=== PATIENT | female | born 1995 | race Caucasian/White ===

== ENCOUNTER 2020-11-25 00:45 | Inpatient (IN) | payer OTHER ==
[~2020-11-25 00:45] MED LIST: Bupivacaine 0.25% 10 ML SDV ONE; Lidocaine 1.5% with EPINEPHrine 1:200,000 5 ML Amp ONE; Lidocaine 2% with EPINEPHrine 1:200,000 20 ML SDV ONE
[2020-11-25] MEDS ORDERED: Sodium Chloride 0.9% 10 ML Syringe FLUSH PRN (01:12)
[2020-11-25] MEDS ORDERED: Acetaminophen 325 MG Tab PO PRN ×2 (01:12→15:23)
[2020-11-25] MEDS ORDERED: Nalbuphine 10 MG/1 ML Vial IVPUSH PRN (01:12)
[2020-11-25] MEDS ORDERED: Oxytocin/Lactated Ringers 10 UNIT/1,000 ML BAG IV SCH ×3 (01:15→15:23)
--- NOTE | 2020-11-25 01:39 | PCM.LDHP ---
L&D History of Present Illness - General Date of Service: 11/25/20 Admit Problem/Dx: Patient Status Order with Admit Dx/Problem 11/25/20 01:12 Patient Status [ADT] Routine Admission Diagnosis/Problem Admission Diagnosis/Problem Source of Information: Patient History Limitations: Reports: No Limitations - History of Present Illness Introduction:: Noni Obrien is a 25-year-old G1, P0 female at 38 weeks 4 days (CAMELIA 12/05/2020) by LMP consistent with a 21-week ultrasound who presents with contractions. She reports that she has been having contractions on and off for the last 1.5 to 2 days and that since yesterday afternoon they have been increasing in intensity. She states that in the afternoon of 11/24 around 2 PM she started to have contractions that were 5 to 10 minutes apart and then became regular at around 5 minutes apart. Throughout the afternoon and evening she states that the contractions became much more intense in the amount of pain with the contractions. She denies any leaking of fluid but this evening she did have a small amount of bleeding when she went to the restroom. She reports good movement. Timing/Duration: Reports: constant/continuous (Every 5 minutes or so since the afternoon of 11/24) Location, : Reports: Lower back, Pelvic Quality: Reports: Pressure, Throbbing Severity: Moderate Improves with: Reports: None Worsens with: Reports: None Associated Symptoms: Reports: vaginal bleeding (In the evening when she went to the restroom). Denies: vaginal discharge, vaginal fluid Present Illness Comments:: Noni Obrien is a 25-year-old G1, P0 female at 38 weeks 4 days (CAMELIA 12/05/2020) by LMP consistent with a 21-week ultrasound who presents with contractions with cervical dilation to 5 cm. She has had routine care with Dr. Yang starting at 11 weeks gestational age. She denies any complications during this . She received Tdap vaccine on 09/11/2020. She did have genetic screening testing done with the that came back normal and did not show any abnormalities. Testing showed that this was a male . Her care has been with Dr. 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 Male on testing. One hour glucose tolerance test: 123 Second trimester hematocrit/hemoglobin: 32.5%/10.7 on 09/11/2020 Platelets: 357 on 09/11/2020 GBS status: Negative - Related Data Allergies/Adverse Reactions: Allergies Allergy/AdvReac Type Severity Reaction Status Date / Time No Known Allergies Allergy Verified 11/25/20 00:55 Past Medical History - Past Health History Medical/Surgical History: Denies Medical/Surgical History - Past Surgical History GI Surgical History: Reports: Appendectomy (2016) Social & Family History - Tobacco Use Tobacco Use Status *Q: Never Tobacco User Tobacco Use Within Last Twelve Months: No - Tobacco Core Measures Tobacco Use/Smoking Within Last 30 Days: No Smokeless Tobacco Use in Last 30 Days: No - Alcohol Use Alcohol Use History: No - Recreational Drug Use Recreational Drug Use: No Drug Use in Last 12 Months: No - Living Situation & Occupation Living situation: Reports: , with Spouse H&P Review of Systems - Review of Systems: Review Of Systems: See Below General: Denies: Fever, Chills, Malaise, Weakness, Fatigue HEENT: Denies: Headaches, Rhinitis, Post Nasal Drip, Sinus Congestion, Sore Throat, Visual Changes Pulmonary: Denies: Shortness of Breath, Wheezing, Pleuritic Chest Pain, Cough Cardiovascular: Denies: Chest Pain, Palpitations, Dyspnea on Exertion, Orthopnea Gastrointestinal: Reports: Diarrhea (1 episode when she started to have contractions). Denies: Abdominal Pain, Constipation, Nausea, Vomiting Genitourinary: Denies: Dysuria, Frequency, Burning, Pain, Urgency Musculoskeletal: Reports: Back Pain (and hip pain of ) Skin: Denies: Rash, Lesions Psychiatric: Denies: Depression, Anxiety L&D Exam - Exam Exam: See Below - Vital Signs Vital Signs: Last Vital Signs Temp 36.9 C 11/25/20 00:49 Pulse 98 11/25/20 00:49 Resp 16 11/25/20 00:49 BP 158/84 H 11/25/20 00:49 Pulse Ox 99 11/25/20 00:49 Weight: 100.698 kg - OB Specific Contraction Duration (sec): 45-60 Contraction Frequency (min): 3-5 Contraction Intensity: Moderate to Strong Movement: Active Heart Tones: Present Heart Tones per Min: 120 (+15 x 15 accelerations, no decelerations) Heart Rate (FHR) Variability: Moderate (6-25 bpm) Presentation: Vertex Estimated Weight: 7.5-8 pounds by Parish - Joshua Score Joshua Score Cervix Position: Midposition Joshua Score Consistency: Soft Joshua Score Effacement: >80% (90%) Joshua Score Dilation: > 5 cm (5-6 cm) Joshua Score Infant's Station: -2 Joshua Score Total: 10 - Exam General: Alert, Oriented HEENT: Conjunctiva Clear, EOMI Neck: Supple, Trachea Midline Lungs: Clear to Auscultation, Normal Respiratory Effort Cardiovascular: Regular Rate, Regular Rhythm GI/Abdominal Exam: Soft, Non-Tender, No Distention, Other (Gravid). No: Guarding, Rigid, Rebound Genitourinary: Normal external exam Extremities: Normal Inspection, No Pedal Edema Skin: Warm, Dry, Intact Psychiatric: Alert, Normal Affect, Normal Mood - Patient Data Result Diagrams: 11/25/20 01:40 11/25/20 01:40 - Problem List (1) 38 weeks gestation of SNOMED Code(s): 28331615 ICD Code: Z3A.38 - 38 WEEKS GESTATION OF Status: Acute Current Visit: Yes (2) Excessive weight gain during SNOMED Code(s): 059936942 ICD Code: O26.00 - EXCESSIVE WEIGHT GAIN IN , UNSPECIFIED TRIMESTER Status: Acute Current Visit: Yes Problem List Initiated/Reviewed/Updated: Yes Orders Last 24hrs: Active Orders 24 hr Category Date Time Status Patient Status [ADT] Routine ADT 11/25/20 01:12 Ordered Activity as Tolerated [RC] PFP Care 11/25/20 01:12 Ordered Communication Order [RC] ASDIRECTED Care 11/25/20 01:12 Ordered Heart Tones [RC] ASDIRECTED Care 11/25/20 01:12 Ordered Non Stress Test [RC] PER UNIT ROUTINE Care 11/25/20 01:12 Ordered Notify Provider Vital Signs [RC] PRN Care 11/25/20 01:12 Ordered Notify Provider [RC] PFP Care 11/25/20 01:12 Ordered Notify Provider [RC] PRN Care 11/25/20 01:12 Ordered Peripheral IV Care [RC] . DIRECTED Care 11/25/20 01:12 Ordered Pump Management, Intrathecal [RC] ASDIRECTED Care 11/25/20 01:12 Ordered Vital Signs [RC] PER UNIT ROUTINE Care 11/25/20 01:12 Ordered Regular Diet [DIET] Diet 11/25/20 Breakfast Ordered CBC WITH AUTO DIFF [HEME] Routine Lab 11/25/20 01:12 Ordered COMPREHENSIVE METABOLIC PN,CMP [CHEM] Routine Lab 11/25/20 01:12 Ordered CORONAVIRUS COVID-19 MORENA [MOLEC] Routine Lab 11/25/20 01:10 Received HEP C VIRUS AB [REF] Routine Lab 11/25/20 01:28 Ordered LACTATE DEHYDROGENASE,LDH [CHEM] Routine Lab 11/25/20 01:12 Ordered PROTEIN/CREATININE RATIO,URINE [URCHEM] Routine Lab 11/25/20 01:12 Ordered RAPID PLASMA REAGIN,RPR [CHEM] Routine Lab 11/25/20 01:12 Ordered Acetaminophen [TylenoL] Med 11/25/20 01:12 Ordered 650 mg PO Q6H PRN Lactated Ringers [Ringers, Lactated] 1,000 ml Med 11/25/20 01:15 Ordered IV ASDIRECTED Nalbuphine [Nubain] Med 11/25/20 01:12 Ordered 10 mg IVPUSH Q2H PRN Oxytocin/Lactated Ringers [Pitocin in LR 10 Units/1,000 Med 11/25/20 01:15 Ordered ML] 10 unit in 1,000 ml IV .CONTINUOUS Sodium Chloride 0.9% [Saline Flush] Med 11/25/20 01:12 Ordered 10 ml FLUSH ASDIRECTED PRN Electronic Heart Tones Ext w TOCO [WOMSER] Oth 11/25/20 01:12 Ordered Routine Electronic Heart Tones Internal [WOMSER] Per Unit Oth 11/25/20 01:12 Ordered Routine Peripheral IV Insertion Adult [OM.PC] Routine Oth 11/25/20 01:12 Ordered Resuscitation Status Routine Resus Stat 11/25/20 00:49 Ordered Medication Orders Acetaminophen (Acetaminophen 325 Mg Tab) 650 mg PO Q6H PRN PRN Reason: Pain (Mild 1-3) and fever Lactated Ringer's (Ringers, Lactated) 1,000 mls @ 100 mls/hr IV ASDIRECTED SUNITHA Oxytocin/Lactated Ringer's (Pitocin In Lr 10 Units/1,000 Ml) 10 unit in 1,000 mls @ 100 mls/hr IV .CONTINUOUS SUNITHA; Protocol Nalbuphine HCl (Nalbuphine 10 Mg/1 Ml Vial) 10 mg IVPUSH Q2H PRN PRN Reason: Pain Sodium Chloride (Sodium Chloride 0.9% 10 Ml Syringe) 10 ml FLUSH ASDIRECTED PRN PRN Reason: Keep Vein Open Assessment/Plan Comment:: Noni Obrien is a 25-year-old G1, P0 at 38 weeks 4 days (CAMELIA 12/05/2020) with spontaneous labor with cervical dilation of 5 to 6 cm complicated by excessive weight gain during * Refer to observation for spontaneous labor with cervical dilation to 5 cm * Plan for artificial rupture of membranes after she has received epidural * Start Pitocin for augmentation of labor * Continuous monitoring * Place IV and have Lactated Ringer's at 125 ml/hr * May have small amounts of regular diet * Activity as tolerated * May have epidural as desired * Plans to breast-feed after delivery * Check CBC, CMP, lactate dehydrogenase, urine protein/creatinine ratio due to mild range blood pressures on initial presentation. Patient did have 1 severe range blood pressure shortly after admission that was not sustained. We will continue to monitor very closely for her blood pressures during labor to ensure that there is no evidence of preeclampsia * Hepatitis C to be checked with labs due to not having this checked during the * Anticipate vaginal delivery unless otherwise indicated Duran Hamilton MD 1:45 AM 11/25/2020
[2020-11-25] MEDS ORDERED: diphenhydrAMINE 50 MG/ML SDV IVPUSH PRN (02:39)
[2020-11-25] MEDS ORDERED: ePHEDrine 50 MG/ML SDV IVPUSH PRN (02:39)
[2020-11-25] MEDS: Lactated Ringers 1,000 ML IV SCH ×3 (02:40→10:27)
[2020-11-25] MEDS: Bupivacaine/fentaNYL/NS 100 ML Bag EPIDUR PRN ×2 (02:48→10:28)
[2020-11-25] MEDS: fentaNYL 100 MCG/2 ML SDV EPIDUR PRN ×2 (02:48→09:19)
--- NOTE | 2020-11-25 03:34 | PCM.PNLD ---
Labor Progress Note - VS & Meds Vital Signs: Last Vital Signs Temp 36.9 C 11/25/20 00:49 Pulse 98 11/25/20 00:49 Resp 16 11/25/20 00:49 BP 158/84 H 11/25/20 00:49 Pulse Ox 99 11/25/20 00:49 Active Medications: Current Medications Acetaminophen (Acetaminophen 325 Mg Tab) 650 mg PO Q6H PRN PRN Reason: Pain (Mild 1-3) and fever Diphenhydramine HCl (Diphenhydramine 50 Mg/Ml Sdv) 25 mg IVPUSH Q6H PRN PRN Reason: pruritis Ephedrine Sulfate (Ephedrine 50 Mg/Ml Sdv) 5 mg IVPUSH ASDIRECTED PRN PRN Reason: Hypotension Fentanyl (Fentanyl 100 Mcg/2 Ml Sdv) 100 mcg EPIDUR Q3H PRN PRN Reason: Pain Last Admin: 11/25/20 02:48 Dose: 100 mcg Documented by: Fentanyl/Bupivacaine HCl (Bupivacaine/Fentanyl/Ns 100 Ml Bag) 100 ml EPIDUR ASDIRECTED PRN PRN Reason: Pain Last Admin: 11/25/20 02:48 Dose: 100 ml Documented by: Lactated Ringer's (Ringers, Lactated) 1,000 mls @ 100 mls/hr IV ASDIRECTED SUNITHA Last Admin: 11/25/20 03:23 Dose: 999 mls/hr Documented by: Oxytocin/Lactated Ringer's (Pitocin In Lr 10 Units/1,000 Ml) 10 unit in 1,000 mls @ 100 mls/hr IV .CONTINUOUS SUNITHA; Protocol Nalbuphine HCl (Nalbuphine 10 Mg/1 Ml Vial) 10 mg IVPUSH Q2H PRN PRN Reason: Pain Sodium Chloride (Sodium Chloride 0.9% 10 Ml Syringe) 10 ml FLUSH ASDIRECTED PRN PRN Reason: Keep Vein Open - Uterine Contractions Contraction Frequency (min): 3-4 Contraction Duration (sec): 45-60 Contraction Intensity: Strong - Monitoring Monitor Mode: Doppler/Auscultation Heart Rate (FHR) Baseline: 120 Heart Rate (FHR) Per Doppler: 120 Heart Rate (FHR) Variability: Moderate (6-25 bpm) Accelerations: Present, 15x15 Decelerations: None Strip Review: Category I - Vaginal Exam Dilation (cm): 7 cm Effacement (Percent): 100% Station: 0 Cervical Position: Anterior Sterile Vaginal Exam Performed By: Duran Hamilton Vaginal Exam Comment: Artificial rupture membranes without significant return of fluid. Several small marble sized clots noted after artificial rupture of membranes. Mother and infant tolerated procedure without difficulty. No significant changes in heart rate pattern after artificial rupture membranes with bleeding noted - Labor Progress (Free Text) Labor Progress: Noni Obrien is a 25-year-old G1, P0 at 38 weeks 4 days with spontaneous labor complicated by mild anemia in the second trimester of excessive weight gain in Artificial rupture membranes performed with [place] without significant return of fluid. There was several small marble sized clots that were noted on exam after rupture of membranes. Mother and infant tolerated procedure without difficulty. Continuous monitoring at this time Patient with mild range blood pressures and an elevated urine protein/creatinine ratio of 0.315. Suspect that patient does have preeclampsia without severe features. We will monitor closely for her blood pressures at this time Routine vitals Patient with epidural for anesthesia Patient may have small amount of regular diet as tolerated Anticipate vaginal delivery unless otherwise indicated Duran Hamilton MD 3:35 AM 11/25/2020
--- NOTE | 2020-11-25 09:51 | PCM.PREANE ---
Preanesthetic Assessment - Procedure Proposed Procedure: Continuous labor epidural - Anesthesia/Transfusion/Family Hx Anesthesia History: Prior Anesthesia Without Reaction Transfusion History: No Prior Transfusion(s) - Review of Systems General: No Symptoms Pulmonary: No Symptoms Cardiovascular: No Symptoms, Other (HTN) Gastrointestinal: No Symptoms Neurological: No Symptoms Other: Reports: None - Physical Assessment Vital Signs: Last Vital Signs Temp 98.5 F 11/25/20 00:49 Pulse 98 11/25/20 00:49 Resp 16 11/25/20 00:49 BP 158/84 H 11/25/20 00:49 Pulse Ox 99 11/25/20 00:49 Height: 1.65 m Weight: 100.698 kg ASA Class: 2 Mental Status: Alert & Oriented x3 Airway Class: Mallampati = 3 Dentition: Reports: Normal Dentition Thyro-Mental Finger Breadths: 3 Mouth Opening Finger Breadths: 3 ROM/Head Extension: Full Lungs: Clear to Auscultation, Normal Respiratory Effort Cardiovascular: Regular Rate, Regular Rhythm - Lab Values: Laboratory Last Values WBC 12.24 K/mm3 (3.98-10.04) H 11/25/20 01:40 RBC 4.21 M/mm3 (3.98-5.22) 11/25/20 01:40 Hgb 12.8 gm/dl (11.2-15.7) 11/25/20 01:40 Hct 39.7 % (34.1-44.9) 11/25/20 01:40 MCV 94.3 fl (79.4-94.8) 11/25/20 01:40 MCH 30.4 pg (25.6-32.2) 11/25/20 01:40 MCHC 32.2 g/dl (32.2-35.5) 11/25/20 01:40 RDW Std Deviation 55.4 fL (36.4-46.3) H 11/25/20 01:40 Plt Count 345 K/mm3 (182-369) 11/25/20 01:40 MPV 10.9 fl (9.4-12.3) 11/25/20 01:40 Neut % (Auto) 76.3 % (34.0-71.1) H 11/25/20 01:40 Lymph % (Auto) 11.9 % (19.3-51.7) L 11/25/20 01:40 [place] % (Auto) 9.7 % (4.7-12.5) 11/25/20 01:40 Eos % (Auto) 1.4 (0.7-5.8) 11/25/20 01:40 Baso % (Auto) 0.2 % (0.1-1.2) 11/25/20 01:40 Neut # (Auto) 9.34 K/mm3 (1.56-6.13) H 11/25/20 01:40 Lymph # (Auto) 1.46 K/mm3 (1.18-3.74) 11/25/20 01:40 [place] # (Auto) 1.19 K/mm3 (0.24-0.36) H 11/25/20 01:40 Eos # (Auto) 0.17 K/mm3 (0.04-0.36) 11/25/20 01:40 Baso # (Auto) 0.02 K/mm3 (0.01-0.08) 11/25/20 01:40 Sodium 139 mEq/L (136-145) 11/25/20 01:40 Potassium 4.0 mEq/L (3.5-5.1) 11/25/20 01:40 Chloride 104 mEq/L (98-107) 11/25/20 01:40 Carbon Dioxide 23 mEq/L (21-32) 11/25/20 01:40 Anion Gap 16.0 (5-15) H 11/25/20 01:40 BUN 11 mg/dL (7-18) 11/25/20 01:40 Creatinine 0.6 mg/dL (0.55-1.02) 11/25/20 01:40 Est Cr Clr Drug Dosing 131.22 mL/min 11/25/20 01:40 Estimated GFR (MDRD) > 60 mL/min (>60) 11/25/20 01:40 BUN/Creatinine Ratio 18.3 (14-18) H 11/25/20 01:40 Glucose 91 mg/dL (70-99) 11/25/20 01:40 Calcium 8.4 mg/dL (8.5-10.1) L 11/25/20 01:40 Total Bilirubin 0.2 mg/dL (0.2-1.0) 11/25/20 01:40 AST 25 U/L (15-37) 11/25/20 01:40 ALT 34 U/L (14-59) 11/25/20 01:40 Alkaline Phosphatase 179 U/L (46-116) H 11/25/20 01:40 Lactate Dehydrogenase 204 U/L (81-234) 11/25/20 01:40 Total Protein 6.9 g/dl (6.4-8.2) 11/25/20 01:40 Albumin 2.7 g/dl (3.4-5.0) L 11/25/20 01:40 Globulin 4.2 gm/dL 11/25/20 01:40 Albumin/Globulin Ratio 0.6 (1-2) L 11/25/20 01:40 Ur Random Creatinine 69.1 mg/dL (30.0-125.0) 11/25/20 02:00 U Random Total Protein 21.8 mg/dL (0.0-11.8) H 11/25/20 02:00 Protein/Creatinin Ratio 315.5 mg/g (0-149) H 11/25/20 02:00 SARS-CoV-2 RNA (MORENA) Negative (NEGATIVE) 11/25/20 01:10 - Allergies Allergies/Adverse Reactions: Allergies Allergy/AdvReac Type Severity Reaction Status Date / Time No Known Allergies Allergy Verified 11/25/20 00:55 - Acknowledgements Anesthesia Type Planned: Epidural Pt an Appropriate Candidate for the Planned Anesthesia: Yes Alternatives and Risks of Anesthesia Discussed w Pt/Guardian: Yes Pt/Guardian Understands and Agrees with Anesthesia Plan: Yes PreAnesthesia Questionnaire - Past Health History Medical/Surgical History: Denies 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: - Past Surgical History GI Surgical History: Reports: Appendectomy (2016) - SUBSTANCE USE Tobacco Use Status *Q: Never Tobacco User Tobacco Use Within Last Twelve Months: No Recreational Drug Use History: No - CURRENT (IN HOUSE) MEDS Current Meds: Current Medications Acetaminophen (Acetaminophen 325 Mg Tab) 650 mg PO Q6H PRN PRN Reason: Pain (Mild 1-3) and fever Diphenhydramine HCl (Diphenhydramine 50 Mg/Ml Sdv) 25 mg IVPUSH Q6H PRN PRN Reason: pruritis Ephedrine Sulfate (Ephedrine 50 Mg/Ml Sdv) 5 mg IVPUSH ASDIRECTED PRN PRN Reason: Hypotension Fentanyl (Fentanyl 100 Mcg/2 Ml Sdv) 100 mcg EPIDUR Q3H PRN PRN Reason: Pain Last Admin: 11/25/20 09:19 Dose: 100 mcg Documented by: Fentanyl/Bupivacaine HCl (Bupivacaine/Fentanyl/Ns 100 Ml Bag) 100 ml EPIDUR ASDIRECTED PRN PRN Reason: Pain Last Admin: 11/25/20 02:48 Dose: 100 ml Documented by: Lactated Ringer's (Ringers, Lactated) 1,000 mls @ 100 mls/hr IV ASDIRECTED SUNITHA Last Admin: 11/25/20 03:23 Dose: 999 mls/hr Documented by: Oxytocin/Lactated Ringer's (Pitocin In Lr 10 Units/1,000 Ml) 10 unit in 1,000 mls @ 100 mls/hr IV .CONTINUOUS SUNITHA; Protocol Oxytocin/Lactated Ringer's (Pitocin In Lr 10 Units/1,000 Ml) 10 unit in 1,000 mls @ 12 mls/hr IV TITRATE SUNITHA; Protocol Last Titration: 11/25/20 09:30 Dose: 4 munits/min, 24 mls/hr Documented by: Nalbuphine HCl (Nalbuphine 10 Mg/1 Ml Vial) 10 mg IVPUSH Q2H PRN PRN Reason: Pain Sodium Chloride (Sodium Chloride 0.9% 10 Ml Syringe) 10 ml FLUSH ASDIRECTED PRN PRN Reason: Keep Vein Open
[2020-11-25] MEDS ORDERED: Misoprostol 200 MCG Tab ONE (15:00)
--- NOTE | 2020-11-25 15:03 | PCM.DEL ---
L & D Note - General Info Date of Service: 11/25/20 Mother's Due Date: 12/05/20 - Delivery Note Labor: Spontaneous, Augmented by Oxytocin Delivery Outcome: Livebirth Infant Delivery Method: Spontaneous Vaginal Delivery-Single Presentation: Right Occiput Anterior (PUSHPA) Nuchal Cord: None Prep: Povidone-Iodine (Betadine Anesthesia Type: Epidural Amniotic Fluid Description: Bloody Episiotomy Type: None Laceration: 2nd Degree (right vaginal, repaired with 3-0 Vicryl), Labial (right labial repaired with 4-0 Vicryl) Suture type: Vicryl Suture size: 3-0 Placenta: Intact, Spontaneous Cord: 3 Vessels Estimated Blood Loss: 750 Resuscitation Needed: No [place]: Bulb Syringe, Stimulated, Warmed, [place] Used Provider: Anshu Holloway Score 1 min: 8 Score 5 min: 9 Second Stage Interventions: Reports: Pushing Effectively, Pushing, Stirrups/Leg Supports Delivery Comments (Free Text/Narrative):: Stage I: Noni Obrien was admitted for spontaneous labor. On admission her cervix was dilated to 5 to 6 cm. She was GBS negative. She was given an epidural for anesthesia. Patient had mild range blood pressures when she was first admitted with 1 severe range blood pressure that was not sustained. We received labs that showed an elevated urine protein/creatinine ratio 0.315. Patient was diagnosed with preeclampsia without severe features based on these ongoing mild range blood pressures with proteinuria she had artificial rupture of membranes with return of small amount of bloody fluid. 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 At this time her contractions decreased significantly and her cervix was overall unchanging. She was started on Pitocin for augmentation of labor. She progressed to complete and pushing Stage II: On 11/25/2020 she had a normal vaginal delivery of a live male infant at 14:13. Apgars of 8 & 9. Weight of 4008 g (8 lbs 15.9 oz). Length of 22 inches. There was no nuchal cord. was delivered in PUSHPA position. The cord was doubly clamped and cut by father the . Infant was placed on mother's abdomen. Stage III: She had a spontaneous delivery of an intact placenta in [place] presentation. Three vessel cord. She was given pitocin and fundal massage. She had a laceration along the right medial labia minora connecting to a right vaginal sidewall laceration. The right vaginal sidewall laceration was repaired with 3-0 Vicryl in a running locked fashion. The right labia minora laceration was repaired with 4-0 Vicryl in running fashion with occasional locked suture in areas with small amount of bleeding. Patient had some increased amount of bleeding during the repair from the vagina. The uterus was cleared of any clots and she was given Cytotec 1000 mcg rectally to help with uterine tone mom and baby were stable to recovery. EBL of 750 mL. Duran Hamilton MD 3:10 PM 11/25/2020 - General Info Date of Service: 11/25/20 - Patient Data Vitals - Most Recent: Last Vital Signs Temp 36.9 C 11/25/20 00:49 Pulse 98 11/25/20 00:49 Resp 16 11/25/20 00:49 BP 158/84 H 11/25/20 00:49 Pulse Ox 99 11/25/20 00:49 Weight - Most Recent: 100.698 kg I&O - Last 24 Hours: Intake & Output 11/25/20 11/25/20 11/25/20 06:59 14:59 22:59 Intake Total 1000 Output Total 1550 Balance 1000 -1550 Lab Results Last 24 Hours: Laboratory Results - last 24 hr 11/25/20 11/25/20 11/25/20 Range/Units 01:10 01:40 01:40 WBC 12.24 H (3.98-10.04) K/mm3 RBC 4.21 (3.98-5.22) M/mm3 Hgb 12.8 (11.2-15.7) gm/dl Hct 39.7 (34.1-44.9) % MCV 94.3 (79.4-94.8) fl MCH 30.4 (25.6-32.2) pg MCHC 32.2 (32.2-35.5) g/dl RDW Std Deviation 55.4 H (36.4-46.3) fL Plt Count 345 (182-369) K/mm3 MPV 10.9 (9.4-12.3) fl Neut % (Auto) 76.3 H (34.0-71.1) % Lymph % (Auto) 11.9 L (19.3-51.7) % [place] % (Auto) 9.7 (4.7-12.5) % Eos % (Auto) 1.4 (0.7-5.8) Baso % (Auto) 0.2 (0.1-1.2) % Neut # (Auto) 9.34 H (1.56-6.13) K/mm3 Lymph # (Auto) 1.46 (1.18-3.74) K/mm3 [place] # (Auto) 1.19 H (0.24-0.36) K/mm3 Eos # (Auto) 0.17 (0.04-0.36) K/mm3 Baso # (Auto) 0.02 (0.01-0.08) K/mm3 Sodium 139 (136-145) mEq/L Potassium 4.0 (3.5-5.1) mEq/L Chloride 104 (98-107) mEq/L Carbon Dioxide 23 (21-32) mEq/L Anion Gap 16.0 H (5-15) BUN 11 (7-18) mg/dL Creatinine 0.6 (0.55-1.02) mg/dL Est Cr Clr Drug Dosing 131.22 mL/min Estimated GFR (MDRD) > 60 (>60) mL/min BUN/Creatinine Ratio 18.3 H (14-18) Glucose 91 (70-99) mg/dL Calcium 8.4 L (8.5-10.1) mg/dL Total Bilirubin 0.2 (0.2-1.0) mg/dL AST 25 (15-37) U/L ALT 34 (14-59) U/L Alkaline Phosphatase 179 H (46-116) U/L Lactate Dehydrogenase 204 (81-234) U/L Total Protein 6.9 (6.4-8.2) g/dl Albumin 2.7 L (3.4-5.0) g/dl Globulin 4.2 gm/dL Albumin/Globulin Ratio 0.6 L (1-2) Ur Random Creatinine (30.0-125.0) mg/dL U Random Total Protein (0.0-11.8) mg/dL Protein/Creatinin Ratio (0-149) mg/g SARS-CoV-2 RNA (MORENA) Negative (NEGATIVE) 11/25/20 Range/Units 02:00 WBC (3.98-10.04) K/mm3 RBC (3.98-5.22) M/mm3 Hgb (11.2-15.7) gm/dl Hct (34.1-44.9) % MCV (79.4-94.8) fl MCH (25.6-32.2) pg MCHC (32.2-35.5) g/dl RDW Std Deviation (36.4-46.3) fL Plt Count (182-369) K/mm3 MPV (9.4-12.3) fl Neut % (Auto) (34.0-71.1) % Lymph % (Auto) (19.3-51.7) % [place] % (Auto) (4.7-12.5) % Eos % (Auto) (0.7-5.8) Baso % (Auto) (0.1-1.2) % Neut # (Auto) (1.56-6.13) K/mm3 Lymph # (Auto) (1.18-3.74) K/mm3 [place] # (Auto) (0.24-0.36) K/mm3 Eos # (Auto) (0.04-0.36) K/mm3 Baso # (Auto) (0.01-0.08) K/mm3 Sodium (136-145) mEq/L Potassium (3.5-5.1) mEq/L Chloride (98-107) mEq/L Carbon Dioxide (21-32) mEq/L Anion Gap (5-15) BUN (7-18) mg/dL Creatinine (0.55-1.02) mg/dL Est Cr Clr Drug Dosing mL/min Estimated GFR (MDRD) (>60) mL/min BUN/Creatinine Ratio (14-18) Glucose (70-99) mg/dL Calcium (8.5-10.1) mg/dL Total Bilirubin (0.2-1.0) mg/dL AST (15-37) U/L ALT (14-59) U/L Alkaline Phosphatase (46-116) U/L Lactate Dehydrogenase (81-234) U/L Total Protein (6.4-8.2) g/dl Albumin (3.4-5.0) g/dl Globulin gm/dL Albumin/Globulin Ratio (1-2) Ur Random Creatinine 69.1 (30.0-125.0) mg/dL U Random Total Protein 21.8 H (0.0-11.8) mg/dL Protein/Creatinin Ratio 315.5 H (0-149) mg/g SARS-CoV-2 RNA (MORENA) (NEGATIVE) Med Orders - Current: Current Medications Acetaminophen (Acetaminophen 325 Mg Tab) 650 mg PO Q6H PRN PRN Reason: Pain (Mild 1-3) and fever Diphenhydramine HCl (Diphenhydramine 50 Mg/Ml Sdv) 25 mg IVPUSH Q6H PRN PRN Reason: pruritis Ephedrine Sulfate (Ephedrine 50 Mg/Ml Sdv) 5 mg IVPUSH ASDIRECTED PRN PRN Reason: Hypotension Fentanyl (Fentanyl 100 Mcg/2 Ml Sdv) 100 mcg EPIDUR Q3H PRN PRN Reason: Pain Last Admin: 11/25/20 09:19 Dose: 100 mcg Documented by: Fentanyl/Bupivacaine HCl (Bupivacaine/Fentanyl/Ns 100 Ml Bag) 100 ml EPIDUR ASDIRECTED PRN PRN Reason: Pain Last Admin: 11/25/20 10:28 Dose: 100 ml Documented by: Lactated Ringer's (Ringers, Lactated) 1,000 mls @ 100 mls/hr IV ASDIRECTED SUNITHA Last Admin: 11/25/20 10:27 Dose: 100 mls/hr Documented by: Oxytocin/Lactated Ringer's (Pitocin In Lr 10 Units/1,000 Ml) 10 unit in 1,000 mls @ 100 mls/hr IV .CONTINUOUS SUNITHA; Protocol Oxytocin/Lactated Ringer's (Pitocin In Lr 10 Units/1,000 Ml) 10 unit in 1,000 mls @ 12 mls/hr IV TITRATE SUNITHA; Protocol Last Titration: 11/25/20 10:27 Dose: 6 munits/min, 36 mls/hr Documented by: Nalbuphine HCl (Nalbuphine 10 Mg/1 Ml Vial) 10 mg IVPUSH Q2H PRN PRN Reason: Pain Sodium Chloride (Sodium Chloride 0.9% 10 Ml Syringe) 10 ml FLUSH ASDIRECTED PRN PRN Reason: Keep Vein Open - Exam Urinary Catheter Total Time: 0Days 0Hours - Problem List & Annotations (1) 38 weeks gestation of SNOMED Code(s): 67752708 Code(s): Z3A.38 - 38 WEEKS GESTATION OF Status: Acute Current Visit: Yes (2) Excessive weight gain during SNOMED Code(s): 924670001 Code(s): O26.00 - EXCESSIVE WEIGHT GAIN IN , UNSPECIFIED TRIMESTER Status: Acute Current Visit: Yes (3) Pre-eclampsia during in third trimester, antepartum SNOMED Code(s): 855010738, 506020879 Code(s): O14.93 - UNSPECIFIED PRE-ECLAMPSIA, THIRD TRIMESTER Status: Acute Current Visit: Yes (4) Vaginal delivery SNOMED Code(s): 972144193 Code(s): O80 - ENCOUNTER FOR FULL-TERM UNCOMPLICATED DELIVERY Status: Acute Current Visit: Yes (5) Second-degree perineal laceration during delivery SNOMED Code(s): 9211324 Code(s): O70.1 - SECOND DEGREE PERINEAL LACERATION DURING DELIVERY Status: Acute Current Visit: Yes (6) Obstetric labial laceration, delivered, current hospitalization SNOMED Code(s): 289153578, 690980416, 820006984 Code(s): O70.0 - FIRST DEGREE PERINEAL LACERATION DURING DELIVERY Status: Acute Current Visit: Yes - Problem List Review Problem List Initiated/Reviewed/Updated: Yes - My Orders Last 24 Hours: My Active Orders 11/25/20 00:49 Resuscitation Status Routine 11/25/20 01:12 Acetaminophen [TylenoL] 650 mg PO Q6H PRN Nalbuphine [Nubain] 10 mg IVPUSH Q2H PRN Sodium Chloride 0.9% [Saline Flush] 10 ml FLUSH ASDIRECTED PRN 11/25/20 01:12 Patient Status [ADT] Routine Activity as Tolerated [RC] PFP Communication Order [RC] ASDIRECTED Heart Tones [RC] ASDIRECTED Non Stress Test [RC] PER UNIT ROUTINE Notify Provider Vital Signs [RC] PRN Notify Provider [RC] PFP Notify Provider [RC] PRN Peripheral IV Care [RC] . DIRECTED Pump Management, Intrathecal [RC] ASDIRECTED Vital Signs [RC] PER UNIT ROUTINE Electronic Heart Tones Ext w TOCO [WOMSER] Routine Electronic Heart Tones Internal [WOMSER] Per Unit Routine Peripheral IV Insertion Adult [OM.PC] Routine 11/25/20 01:15 Lactated Ringers [Ringers, Lactated] 1,000 ml IV ASDIRECTED Oxytocin/Lactated Ringers [Pitocin in LR 10 Units/1,000 ML] 10 unit in 1,000 ml IV .CONTINUOUS 11/25/20 01:40 HEP C VIRUS AB [REF] Routine RAPID PLASMA REAGIN,RPR [CHEM] Routine 11/25/20 03:41 Urinary Catheter Assessment [RC] ASDIRECTED 11/25/20 03:45 Urinary Catheter Insertion [Insert Urinary Catheter] [OM.PC] Q24H 11/25/20 Breakfast Regular Diet [DIET] 11/25/20 08:30 Oxytocin/Lactated Ringers [Pitocin in LR 10 Units/1,000 ML] 10 unit in 1,000 ml IV TITRATE 11/25/20 14:57 Patient Status Manage Transfer [TRANSFER] Routine - Plan Plan:: Noni Obrien is a 25-year-old now -0-0-1 status post , PPD #0, complicated by preeclampsia without severe features diagnosed in labor and excessive weight gain during * Admit to inpatient following normal spontaneous vaginal delivery * Continue Pitocin per unit protocol following delivery of placenta and lactated Ringer's until tolerating regular diet * Regular diet * Vitals per unit routine * Close monitoring of patient's vital signs due to diagnosis of preeclampsia without severe features during labor * Ibuprofen and Tylenol for pain control * Assist with breast-feeding as needed * Continue to monitor lochia * Patient with 750 mL of blood loss during delivery. We will plan to check a CBC in the morning of PPD #1 * Anticipate discharge home on day #2 Duran Hamilton MD 3:10 PM 11/25/2020
[2020-11-25] MEDS ORDERED: Misoprostol 200 MCG Tab RECTAL ONE (15:18)
[2020-11-25] MEDS ORDERED: Misoprostol 200 MCG Tab RECTAL PRN (15:23)
[2020-11-25] MEDS ORDERED: Docusate Sodium 100 MG Cap PO PRN (15:23)
[2020-11-25] MEDS ORDERED: Witch Hazel Medicated Pads 40/Jar TOP PRN (15:23)
[2020-11-25] MEDS ORDERED: Hydrocortisone Acetate 25 MG Supp RECTAL PRN (15:23)
[2020-11-25] MEDS ORDERED: Benzocaine/Menthol 20%-0.5% Spray 56 GM Canister TOP PRN (15:23)
[2020-11-25] MEDS ORDERED: Magnesium Hydroxide 400 MG/5 ML Susp 30 ML Cup PO PRN (15:23)
[2020-11-26] MEDS: Ibuprofen 600 MG Tab PO PRN ×2 (00:30→20:29)
[2020-11-26] MEDS: Prenatal Multivitamin with Calcium/Folic Acid/Iron Tab PO SCH (08:43)
--- NOTE | 2020-11-26 11:19 | PCM.SN.2 ---
- Free Text/Narrative Note: Post Progress Note PPD #1 Subjective: Doing well overall. Ambulating without difficulty. Lochia minimal. Voiding without difficulty. Tolerating regular diet without nausea or vomiting. Pain controlled with oral medications. Reports soreness in the vagina and perineal area. She has been able to urinate without difficulty but does have burning with urination. Reports that the spray bottle after urination helps with this pain. Breast-feeding with minimal difficulty. Denies any headaches, vision ute nges or epigastric pain. Objective: Vitals: Vital Signs - 24 hr 11/25/20 11/26/20 11/26/20 20:55 03:21 08:43 Temperature 37.3 C 36.3 C 36.6 C Pulse, 115 H 84 101 H Peripheral Respiratory 14 14 16 Rate Blood Pressure 135/70 116/75 136/80 O2 Sat by Pulse 96 96 99 Oximetry Physical Exam General: Alert and oriented, no acute distress Lungs: Clear to auscultation bilaterally Heart: Regular rate and rhythm Abdomen: Soft, minimal appropriate tenderness, non-distended, fundus midline, nontender, and 1 fingerbreadth below the umbilicus Extremities: 1+ edema in bilateral lower extremities to knees, no calf tenderness bilaterally Laboratory Results - last 24 hr 11/25/20 11/25/20 11/26/20 Range/Units 01:40 01:40 05:41 WBC 17.79 H (3.98-10.04) K/mm3 RBC 3.34 L (3.98-5.22) M/mm3 Hgb 10.1 L D (11.2-15.7) gm/dl Hct 32.1 L (34.1-44.9) % MCV 96.1 H (79.4-94.8) fl MCH 30.2 (25.6-32.2) pg MCHC 31.5 L (32.2-35.5) g/dl RDW Std Deviation 57.4 H (36.4-46.3) fL Plt Count 285 (182-369) K/mm3 MPV 10.7 (9.4-12.3) fl Neut % (Auto) 78.8 H (34.0-71.1) % Lymph % (Auto) 10.7 L (19.3-51.7) % [place] % (Auto) 9.0 (4.7-12.5) % Eos % (Auto) 1.0 (0.7-5.8) Baso % (Auto) 0.1 (0.1-1.2) % Neut # (Auto) 14.03 H (1.56-6.13) K/mm3 Lymph # (Auto) 1.90 (1.18-3.74) K/mm3 [place] # (Auto) 1.60 H (0.24-0.36) K/mm3 Eos # (Auto) 0.17 (0.04-0.36) K/mm3 Baso # (Auto) 0.02 (0.01-0.08) K/mm3 Manual Slide Review Abnormal smear RPR Non-reactive (NONREACTIVE) Hepatitis C Antibody <0.1 (0.0-0.9) s/co ratio ASSESSMENT: 25-year-old female -0-0-1 s/p normal vaginal delivery PPD #1, complicated by preeclampsia without severe features diagnosed in labor, PLAN: Doing well Breast-feeding with minimal difficulty. Assist as needed Lochia minimal. Continue to monitor for appropriate lochia. Continue routine care Hemoglobin this morning was 10.1 with a drop from 12.8 on admission. No evidence of acute blood loss anemia based on this result. Plan to continue to monitor vital signs closely Normal range blood pressures since delivery. No evidence of severe features of preeclampsia at this time. Continue to monitor her blood pressures closely to ensure that she does not need antihypertensive medication. Anticipate discharge home tomorrow Duran Hamilton MD 11:19 AM 11/26/2020
--- NOTE | 2020-11-27 07:33 | PCM.DCSUM1 ---
Discharge Summary - Hospital Course Free Text/Narrative:: Noni is a 25-year-old 1 now para 1-0-0-1 female admitted on 11/25/2020 with an CAMELIA of 12/05/2020 in early labor. Stage I: Noni Obrien was admitted for spontaneous labor. On admission her cervix was dilated to 5 to 6 cm. She was GBS negative. She was given an epidural for anesthesia. Patient had mild range blood pressures when she was first admitted with 1 severe range blood pressure that was not sustained. We received labs that showed an elevated urine protein/creatinine ratio 0.315. Patient was diagnosed with preeclampsia without severe features based on these ongoing mild range blood pressures with proteinuria she had artificial rupture of membranes with return of small amount of bloody fluid. 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 At this time her contractions decreased significantly and her cervix was overall unchanging. She was started on Pitocin for augmentation of labor. She progressed to complete and pushing Stage II: On 11/25/2020 she had a normal vaginal delivery of a live male infant at 14:13. Apgars of 8 & 9. Weight of 4008 g (8 lbs 15.9 oz). Length of 22 inches. There was no nuchal cord. Infant was delivered in PUSHPA position. The cord was doubly clamped and cut by father the . Infant was placed on mother's abdomen. Stage III: She had a spontaneous delivery of an intact placenta in [place] presentation. Three vessel cord. She was given pitocin and fundal massage. She had a laceration along the right medial labia minora connecting to a right vaginal sidewall laceration. The right vaginal sidewall laceration was repaired with 3-0 Vicryl in a running locked fashion. The right labia minora laceration was repaired with 4-0 Vicryl in running fashion with occasional locked suture in areas with small amount of bleeding. Patient had some increased amount of bleeding during the repair from the vagina. The uterus was cleared of any clots and she was given Cytotec 1000 mcg rectally to help with uterine tone mom and baby were stable to recovery. EBL of 750 mL. patient has had an unremarkable recovery. She is doing very well. She is ambulating without problems, has minimal flow. She is voiding without concerns. She is desiring discharge home. Condition: Good Diagnosis: Stroke: No - Discharge Data Discharge Date: 11/27/20 Discharge Disposition: Home, Self-Care 01 Condition: Good - Referral to Home Health Primary Care Physician: Mile Yang MD - Patient Instructions Diet: Usual Diet as Tolerated (Nursing diet with increased calories and calcium as recommended) Activity: As Tolerated (No intercourse or tampons until bleeding resolves) Driving: May Drive Today Showering/Bathing: May Shower (May take a bath) Notify Provider of: Fever, Increased Pain, Swelling and Redness, Drainage - Discharge Plan Home Medications: Home Meds Acetaminophen [Tylenol] 650 mg PO Q6H PRN tablet 11/27/20 [Rx] Ibuprofen [Motrin] 600 mg PO Q6H PRN tablet 11/27/20 [Rx] miSOPROStoL [Cytotec] 1,000 mcg RECTAL ONETIME PRN tablet 11/27/20 [Rx] Referrals: Mile Yang MD [Primary Care Provider] - - Discharge Summary/Plan Comment DC Time >30 min.: No Discharge Summary/Plan Comment: Discharge instructions: 1. Discharge home 2. Diet, activity and follow-up discussed with patient. Recommend nursing diet with increased calories and calcium. 3. Precautions given concern increased pain, bleeding, temperature, signs/symptoms of DVT/PE. 4. Medications per home medication was printed, discussed with and given to the patient. 5. Return to clinic with her primary care obstetricianDr. Russell 2 weeks. Diagnosis: Term -delivered Condition: Good - Patient Data Vitals - Most Recent: Last Vital Signs Temp 36.6 C 11/27/20 03:08 Pulse 80 11/27/20 03:08 Resp 14 11/27/20 03:08 BP 131/74 11/27/20 03:08 Pulse Ox 97 11/27/20 03:08 Weight - Most Recent: 100.698 kg I&O - Last 24 hours: Intake & Output 11/26/20 11/27/20 11/27/20 22:59 06:59 14:59 Intake Total 300 Balance 300 Lab Results - Last 24 hrs: Laboratory Results - last 24 hr 11/25/20 11/25/20 Range/Units 01:40 01:40 RPR Non-reactive (NONREACTIVE) Hepatitis C Antibody <0.1 (0.0-0.9) s/co ratio Med Orders - Current: Current Medications Acetaminophen (Acetaminophen 325 Mg Tab) 650 mg PO Q6H PRN PRN Reason: mild pain or fever Benzocaine/Menthol (Benzocaine/Menthol 20%-0.5% [place] 56 Gm Canister) 0 gm TOP ASDIRECTED PRN PRN Reason: Perineal Comfort Measure Last Admin: 11/25/20 18:21 Dose: 1 spray Documented by: Docusate Sodium (Docusate Sodium 100 Mg Cap) 100 mg PO BID PRN PRN Reason: Constipation Hydrocortisone Acetate (Hydrocortisone Acetate 25 Mg Supp) 25 mg RECTAL BID PRN PRN Reason: Hemorrhoid pain Oxytocin/Lactated Ringer's (Pitocin In Lr 10 Units/1,000 Ml) 10 unit in 1,000 mls @ 100 mls/hr IV TITRATE SUNITHA; Protocol Ibuprofen (Ibuprofen 600 Mg Tab) 600 mg PO Q6H PRN PRN Reason: Mild pain or fever Last Admin: 11/26/20 20:29 Dose: 600 mg Documented by: Magnesium Hydroxide (Magnesium Hydroxide 400 Mg/5 Ml Susp 30 Ml Cup) 30 ml PO BEDTIME PRN PRN Reason: Constipation Misoprostol (Misoprostol 200 Mcg Tab) 1,000 mcg RECTAL ONETIME PRN PRN Reason: excessive vaginal bleeding Prenat Multivit/[place]/Iron/Folic Ac ( Multivitamin With Calcium/Folic Acid/Iron Tab) 1 each PO DAILY SUNITHA Last Admin: 11/26/20 08:43 Dose: 1 each Documented by: Landy Holly (Landy Holly Medicated Pads 40/Jar) 1 pad TOP ASDIRECTED PRN PRN Reason: Perineal Comfort Measure Last Admin: 11/25/20 18:21 Dose: 1 pad Documented by: Discontinued Medications Acetaminophen (Acetaminophen 325 Mg Tab) 650 mg PO Q6H PRN PRN Reason: Pain (Mild 1-3) and fever Diphenhydramine HCl (Diphenhydramine 50 Mg/Ml Sdv) 25 mg IVPUSH Q6H PRN PRN Reason: pruritis Ephedrine Sulfate (Ephedrine 50 Mg/Ml Sdv) 5 mg IVPUSH ASDIRECTED PRN PRN Reason: Hypotension Fentanyl (Fentanyl 100 Mcg/2 Ml Sdv) 100 mcg EPIDUR Q3H PRN PRN Reason: Pain Last Admin: 11/25/20 09:19 Dose: 100 mcg Documented by: Fentanyl/Bupivacaine HCl (Bupivacaine/Fentanyl/Ns 100 Ml Bag) 100 ml EPIDUR ASDIRECTED PRN PRN Reason: Pain Last Admin: 11/25/20 10:28 Dose: 100 ml Documented by: Lactated Ringer's (Ringers, Lactated) 1,000 mls @ 100 mls/hr IV ASDIRECTED SUNITHA Last Admin: 11/25/20 10:27 Dose: 100 mls/hr Documented by: Oxytocin/Lactated Ringer's (Pitocin In Lr 10 Units/1,000 Ml) 10 unit in 1,000 mls @ 100 mls/hr IV .CONTINUOUS SUNITHA; Protocol Oxytocin/Lactated Ringer's (Pitocin In Lr 10 Units/1,000 Ml) 10 unit in 1,000 mls @ 12 mls/hr IV TITRATE SUNITHA; Protocol Last Titration: 11/25/20 14:13 Dose: 500 munits/min, 3,000 mls/hr Documented by: Misoprostol (Misoprostol 200 Mcg Tab) 1,000 mcg RECTAL ONETIME ONE Stop: 11/25/20 15:19 Last Admin: 11/25/20 14:43 Dose: 1,000 mcg Documented by: Nalbuphine HCl (Nalbuphine 10 Mg/1 Ml Vial) 10 mg IVPUSH Q2H PRN PRN Reason: Pain Sodium Chloride (Sodium Chloride 0.9% 10 Ml Syringe) 10 ml FLUSH ASDIRECTED PRN PRN Reason: Keep Vein Open
--- NOTE | 2020-11-27 08:15 | PCM48HPAN ---
Post Anesthesia Note - EVALUATION WITHIN 48HRS OF ANESTHETIC Vital Signs in Normal Range: Yes Patient Participated in Evaluation: Yes Respiratory Function Stable: Yes Airway Patent: Yes Cardiovascular Function Stable: Yes Hydration Status Stable: Yes Pain Control Satisfactory: Yes Nausea and Vomiting Control Satisfactory: Yes Mental Status Recovered: Yes Vital Signs: Last Vital Signs Temp 36.7 C 11/27/20 07:26 Pulse 93 11/27/20 07:26 Resp 16 11/27/20 07:26 BP 134/72 11/27/20 07:26 Pulse Ox 98 11/27/20 07:26 - COMMENTS/OBSERVATIONS Free Text/Narrative:: pt post day 3, ambulating, feeling well, no apparent anesthetic complications.
[2020-11-27] MEDS: Prenatal Multivitamin with Calcium/Folic Acid/Iron Tab PO SCH (08:57)
== END 2020-11-27 10:28 | disposition home or self-care (01) | DRG 807 ==
LOC: JD.OB 00:45 → JD.OBCHECK 00:45 → JD.OB 01:08 → OBSVTOIN 14:13 → JD.OB 14:14
PROVIDERS: ADMIT Obstetrics & Gynecology; ATTEND Obstetrics & Gynecology
PROC: 10E0XZZ Delivery of Products of Conception, External Approach (ICD-10-PCS; principal; 2020-11-25)
PROC: 0KQM0ZZ Repair Perineum Muscle, Open Approach (ICD-10-PCS; 2020-11-25)
PROC: 10907ZC Drainage of Amniotic Fluid, Therapeutic from Products of Conception, Via Natural or Artificial Opening (ICD-10-PCS; 2020-11-25)
PROC: 3E0R3BZ Introduction of Anesthetic Agent into Spinal Canal, Percutaneous Approach (ICD-10-PCS; 2020-11-25)
DX: O14.04 Mild to moderate pre-eclampsia, complicating childbirth (principal); Z37.0 Single live birth; Z3A.38 38 weeks gestation of pregnancy; O70.1 Second degree perineal laceration during delivery; Z20.822 Contact with and (suspected) exposure to COVID-19
CPT/HCPCS: 01967; 36415; 51702; 59025; 59409; 80053; 82570; 83615; 84156; 85025; 86592; 86803; A9270-GY; J2590; J3010; J3490; J7120; U0002

== ENCOUNTER 2021-07-21 00:27 | Emergency (ER) | payer OTHER ==
[2021-07-21] MEDS ORDERED: Bupivacaine 0.5% 10 ML SDV INJECT ONE (00:50)
[2021-07-21] MEDS ORDERED: Lidocaine 1% with EPINEPHrine 1:100,000 10 ML MDV INJECT ONE (00:50)
[2021-07-21] MEDS ORDERED: Penicillin V Potassium 500 MG Tab PO STA (00:51)
== END 2021-07-21 01:30 | disposition home or self-care (01) ==
LOC: JD.ED 00:27
DX: S02.5XXA Fracture of tooth (traumatic), initial encounter for closed fracture (principal)
CPT/HCPCS: 64400; 99282; A9270; J3490; 99284

== ENCOUNTER 2024-06-22 07:14 | Inpatient (IN) | payer BC ==
[2024-06-22] MEDS ORDERED: Calcium Carbonate 500 MG Tab.Chew PO PRN (07:44)
[2024-06-22] MEDS ORDERED: Sodium Chloride 0.9% 10 ML Syringe FLUSH PRN (07:44)
[2024-06-22] MEDS ORDERED: Nalbuphine 10 MG/1 ML Vial IVPUSH PRN (07:44)
[2024-06-22] MEDS ORDERED: Ondansetron 4 MG/2 ML SDV IVPUSH PRN (07:44)
[2024-06-22] MEDS ORDERED: Oxytocin/0.9 % Sodium Chloride 30 UNIT/500 ML BAG IV SCH (07:45)
[2024-06-22 08:12] LABS: BASOPHILS PERCENT AUTO 0.3 % (0.0-1.0); EOSINOPHILS ABSOLUTE AUTO 0.3 K/mm3 (0.0-0.4); EOSINOPHILS PERCENT AUTO 2.4 % (0.0-6.0); HEMATOCRIT 38.2 % (37.0-47.0); HEMOGLOBIN 12.9 gm/dl (12.0-16.0); IMMATURE GRAN ABSOLUTE AUTO 0.11 K/mm3 (0.00-0.05); LYMPHOCYTES ABSOLUTE AUTO 1.7 K/mm3 (1.0-4.8); LYMPHOCYTES PERCENT AUTO 14.4 % (24.0-44.0); MEAN CORPUSCULAR HEMOGLOBIN 31.1 pg (28.0-32.0); MEAN CORPUSCULAR HGB CONC 33.8 g/dl (32.0-36.0); MEAN PLATELET VOLUME 10.2 fl (9.4-12.3); MONOCYTES ABSOLUTE AUTO 0.8 K/mm3 (0.0-0.8); MONOCYTES PERCENT AUTO 7.2 % (0.0-8.0); NEUTROPHILS ABSOLUTE AUTO 8.6 K/mm3 (1.8-7.7); NEUTROPHILS PERCENT AUTO 74.7 % (41.0-71.0); PLATELET COUNT,PLT 349 K/mm3 (150-400); RED BLOOD CELL COUNT 4.15 M/mm3 (4.10-5.30); WHITE BLOOD CELL COUNT,WBC 11.49 K/mm3 (3.9-11.3)
[2024-06-22] MEDS: Lactated Ringers 1,000 ML IV SCH (08:33)
[2024-06-22] MEDS: Oxytocin/0.9 % Sodium Chloride 30 UNIT/500 ML BAG IV SCH (08:33)
[2024-06-22 08:49] LABS: CREATININE 0.6 mg/dL (0.55-1.02); EST CRCL DRUG DOSING (CG) 126.73 mL/min; URIC ACID 3.3 mg/dL (2.6-6.0)
[2024-06-22 10:53] LABS: CREATININE,URINE RAND 55.5 mg/dL (30.0-125.0); PROTEIN CREATININE RATIO,URINE 493.7 mg/g (0-149); PROTEIN,URINE RANDOM 27.4 mg/dL (0.0-11.8)
[2024-06-22] MEDS ORDERED: ePHEDrine 50 MG/ML SDV IVPUSH PRN (14:29)
[2024-06-22] MEDS ORDERED: diphenhydrAMINE 50 MG/ML SDV IVPUSH PRN (14:29)
[2024-06-22] MEDS: fentaNYL 100 MCG/2 ML SDV EPIDUR PRN (17:30)
[2024-06-22] MEDS: Bupivacaine/fentaNYL/NS 100 ML Bag EPIDUR PRN (17:31)
[2024-06-22] MEDS: Lidocaine 1% 50 ML MDV INJECT PRN (18:32)
[2024-06-22] MEDS ORDERED: Acetaminophen 325 MG Tab PO PRN (19:44)
[2024-06-22] MEDS ORDERED: Docusate Sodium 100 MG Cap PO PRN (19:44)
[2024-06-22] MEDS: Benzocaine/Menthol 20%-0.5% Spray 78 GM Cannister TOP PRN (21:17)
[2024-06-22] MEDS: Witch Hazel Medicated Pads 40/Jar TOP PRN (21:19)
[2024-06-22] MEDS: Methylergonovine 0.2 MG/1 ML Amp ONE (22:00)
[2024-06-22] MEDS: Methylergonovine 0.2 MG/1 ML Amp IM PRN (22:05)
[2024-06-22] MEDS: Ibuprofen 600 MG Tab PO SCH (22:07)
[2024-06-22] MEDS ORDERED: fentaNYL 100 MCG/2 ML SDV IVPUSH ONE (22:20)
[2024-06-22] MEDS ORDERED: fentaNYL 100 MCG/2 ML SDV ONE (22:22)
[2024-06-22] MEDS ORDERED: Misoprostol 200 MCG Tab ONE (22:29)
[2024-06-22] MEDS: fentaNYL 100 MCG/2 ML SDV IVPUSH ONE (22:46)
[2024-06-22] MEDS: Misoprostol 200 MCG Tab BUCCAL STA (22:47)
[2024-06-22 22:51] LABS: HEMATOCRIT 34.1 % (37.0-47.0); HEMOGLOBIN 11.2 gm/dl (12.0-16.0); MEAN CORPUSCULAR HEMOGLOBIN 30.4 pg (28.0-32.0); MEAN CORPUSCULAR HGB CONC 32.8 g/dl (32.0-36.0); MEAN CORPUSCULAR VOLUME 92.4 fl (83.0-99.0); MEAN PLATELET VOLUME 10.2 fl (9.4-12.3); PLATELET COUNT,PLT 339 K/mm3 (150-400); RED BLOOD CELL COUNT 3.69 M/mm3 (4.10-5.30); WHITE BLOOD CELL COUNT,WBC 22.05 K/mm3 (3.9-11.3)
[2024-06-22 23:21] LABS: INR 0.97; PROTHROMBIN TIME 10.3 SECONDS (9.7-12.0)
[2024-06-22 23:23] LABS: PTT,PARTIAL THROMBOPLSTIN TIME 24.6 SECONDS (21.7-31.4)
[2024-06-23] MEDS: Ibuprofen 600 MG Tab PO SCH ×2 (06:23→11:59)
== END 2024-06-24 11:10 | disposition home or self-care (01) | DRG 560 ==
LOC: JD.OB 07:36 → OBSVTOIN 18:05 → JD.OB 18:06
PROVIDERS: ADMIT Obstetrics & Gynecology; ATTEND Obstetrics & Gynecology
PROC: 10E0XZZ Delivery of Products of Conception, External Approach (ICD-10-PCS; principal; 2024-06-22)
PROC: 0U7C7ZZ Dilation of Cervix, Via Natural or Artificial Opening (ICD-10-PCS; 2024-06-22)
PROC: 10907ZC Drainage of Amniotic Fluid, Therapeutic from Products of Conception, Via Natural or Artificial Opening (ICD-10-PCS; 2024-06-22)
PROC: 3E033VJ Introduction of Other Hormone into Peripheral Vein, Percutaneous Approach (ICD-10-PCS; 2024-06-22)
PROC: 0HQ9XZZ Repair Perineum Skin, External Approach (ICD-10-PCS; 2024-06-22)
DX: O14.94 Unspecified pre-eclampsia, complicating childbirth (principal); Z37.0 Single live birth; O13.4 Gestational [pregnancy-induced] hypertension without significant proteinuria, complicating childbirth; O69.81X0 Labor and delivery complicated by cord around neck, without compression, not applicable or unspecified; O70.0 First degree perineal laceration during delivery; Z3A.37 37 weeks gestation of pregnancy; Z90.49 Acquired absence of other specified parts of digestive tract
CPT/HCPCS: 36415; 51701; 59025; 59409; 82565; 82570; 83615; 84156; 84450; 84460; 84520; 84550; 85025; 85027; 85384; 85610; 85730; 86592; 86850; 86900; 86901; A9270-GY; C1726; J2003; J2210; J3010; J3490; J7120; J7999